=== PATIENT | male | born 1945 | race Caucasian/White ===

== ENCOUNTER → 2018-03-15 | Outpatient (CLI) | payer MEDICARE ==
[2018-03-15 09:33] LABS: ANION GAP 8 (6-14); BLOOD UREA NITROGEN 22 mg/dL (8-26); CALCIUM 8.3 mg/dL (8.5-10.1); CARBON DIOXIDE 27 mmol/L (21-32); CHLORIDE 106 mmol/L (98-107); CREATININE 1.4 mg/dL (0.7-1.3); GLUCOSE 378 mg/dL (70-99); POTASSIUM 4.7 mmol/L (3.5-5.1); SODIUM 141 mmol/L (136-145)
== END | disposition home or self-care (01) ==
LOC: LAB 08:55
DX: I25.5 Ischemic cardiomyopathy (principal)
CPT/HCPCS: 36415; 80048

== ENCOUNTER → 2018-06-12 | Outpatient (CLI) | payer MEDICARE ==
[2017-12-06 15:15] VITALS: BP 125/76
[~2018-06-12] MED LIST: ALLO100T PO; AMIO200T4 PO; AMLO10TA4 PO; ASPI325T11 PO; ATOR10TA PO; ATORVASTATIN CA80 MG PO; CARV12.5 PO; CLOP75TA PO; ERGO500027 PO; FERR325T72 PO; FURO-69 PO; FURO40TA4 PO; GABA-585 PO; HYDR-971 PO; HYDR12.53 PO; INSU100I17 SQ; INSU100I27 SQ; INSU100V13 SQ; LISI-130 PO; LORA0.5T PO; METO-239 PO; METO10TA81 PO; OMEP20CA9 PO; PANT40TA3 PO; POTA20TA82 PO; SPIR25TA5 PO; Sennosides/Docusate Sodium PO; TRAM50TA PO; Vicodin PO; WARF-78 PO; tramadol PO
[2018-06-12 11:14] LABS: CALCIUM 8.8 mg/dL (8.5-10.1); CREATININE 1.4 mg/dL (0.7-1.3); POTASSIUM 5.1 mmol/L (3.5-5.1)
== END | disposition home or self-care (01) ==
LOC: LAB 10:22
PROVIDERS: ATTEND Internal Medicine Cardiovascular Disease
DX: I25.10 Atherosclerotic heart disease of native coronary artery without angina pectoris (principal)
CPT/HCPCS: 36415; 80048

== ENCOUNTER → 2018-12-07 | Outpatient (CLI) | payer MEDICARE ==
[2017-12-06 15:15] VITALS: BP 125/76
[~2018-12-07] MED LIST changes: +HYDR-3164 PO; -HYDR-971 PO; -HYDR12.53 PO; +HYDR12.575 PO; +OMEP20CA10 PO; -OMEP20CA9 PO
--- NOTE | 2018-12-07 11:21 | CARD ---
MR#: [id number] Date of Study: 12/07/2018 Ordering Physician: PARVEEN BUTLER, Referring Physician: PARVEEN BUTLER, Tech: Radha Rodriguez APPROVED REPORT EXAM: Two-dimensional and M-mode echocardiogram with Doppler and color Doppler. Other Information Quality : FairHR: 50bpm Technically limited study due to body habitus. INDICATION CAD Surgery/Intervention ICD/Pacemaker: Date: 2017 RISK FACTORS Hypertension Hyperlipidemia Diabetes Previous smoker 2D DIMENSIONS RVDd2.7 (2.9-3.5cm)Left Atrium(2D)3.8 (1.6-4.0cm) IVSd1.3 (0.7-1.1cm)Aortic Root(2D)3.4 (2.0-3.7cm) LVDd5.4 (3.9-5.9cm)LVOT Diameter2.2 (1.8-2.4cm) PWd1.1 (0.7-1.1cm)LVDs4.1 (2.5-4.0cm) FS (%) 23.2 %SV64.9 ml LVEF(%)46.1 (>50%) Aortic Valve AoV Peak Thor.114.9cm/sAoV VTI23.5cm AO Peak GR.5.3mmHgLVOT Peak Thor.82.9cm/s LVOT VTI 19.33cmAO Mean GR.3mmHg GUILHERME (VMAX)1.54qm0HGW (VTI)3.07cm2 AI P 1/2 Ohja328qg Mitral Valve MV E Wkraenko18.0cm/sMV DECEL [id number] MV A Sykuhxqk07.1cm/sMV XAT87ti E/A Ratio1.1MVA (PHT)2.80cm2 TDI E/Lateral E'11.1E/Medial E'14.1 Pulmonary Valve PV Peak Ayfagnvf24.1cm/sPV Peak Grad.4mmHg LEFT VENTRICLE The left ventricle is normal size. There is mild concentric left ventricular hypertrophy. The left ve ntricular systolic function is severely impaired. The Ejection Fraction is 20-25%. There is global hy pokinesis of the left ventricle. Transmitral Doppler flow pattern is Grade II-pseudonormal filling dy namics. RIGHT VENTRICLE The right ventricle is borderline dilated. There is normal right ventricular wall thickness. Systolic function is borderline reduced. There is a pacemaker lead in the right ventricle. ATRIA The left atrium size is normal. There is a pacemaker lead seen in the right atrium. The right atrium size is normal. The interatrial septum is intact with no evidence for an atrial septal defect or strong nt foramen ovale as noted on 2-D or Doppler imaging. AORTIC VALVE The aortic valve is not well visualized. Doppler and Color Flow revealed mild aortic regurgitation. T here is no significant aortic valvular stenosis. MITRAL VALVE The mitral valve is normal in structure and function. There is no evidence of mitral valve prolapse. There is no mitral valve stenosis. Doppler and Color Flow revealed no mitral valve regurgitation note d. TRICUSPID VALVE The tricuspid valve is normal in structure and function. Doppler and Color Flow revealed trace tricus pid regurgitation. There is no tricuspid valve stenosis. PULMONIC VALVE The pulmonic valve is not well visualized. Doppler and Color Flow revealed no pulmonic valvular regur gitation. GREAT VESSELS The aortic root is normal in size. The IVC was not visualized. PERICARDIAL EFFUSION There is no evidence of significant pericardial effusion. Critical Notification Critical Value: No <Conclusion> The left ventricular systolic function is severely impaired. The Ejection Fraction is 20-25%. Transmitral Doppler flow pattern is Grade II-pseudonormal filling dynamics. Pacer/ICD lead noted in the right atrium and right ventricle. Mild aortic regurgitation. Trace tricuspid regurgitation. There is no evidence of significant pericardial effusion. Signed by : Parveen Butler, Electronically Approved : 12/07/2018 11:20:48
== END | disposition home or self-care (01) ==
LOC: ECHO 09:04
PROVIDERS: ATTEND Internal Medicine Cardiovascular Disease
DX: I35.1 Nonrheumatic aortic (valve) insufficiency (principal); I11.9 Hypertensive heart disease without heart failure; I25.10 Atherosclerotic heart disease of native coronary artery without angina pectoris; E78.5 Hyperlipidemia, unspecified; E11.9 Type 2 diabetes mellitus without complications; Z87.891 Personal history of nicotine dependence; Z95.0 Presence of cardiac pacemaker; Z79.4 Long term (current) use of insulin
CPT/HCPCS: 93306